=== PATIENT | female | born 1975 | race Caucasian/White ===

== ENCOUNTER 2016-05-13 01:42 | Emergency (ER) | payer SELFPAY ==
[2016-05-13] MEDS ORDERED: NITROGLYCERIN 0.4 MG 25 EA TAB SL ONE ×2 (02:00→03:05)
[2016-05-13] MEDS ORDERED: ASPIRIN TABLET 325 MG TAB ONE (02:00)
[2016-05-13] MEDS ORDERED: ASPIRIN TABLET 325 MG TAB PO ONE (02:00)
--- NOTE | 2016-05-13 02:00 | ED.PDOC ---
History of Present Illness - General Chief Complaint: Cardiovascular Problem Stated Complaint: chest discomfort/not feeling well Time Seen by Provider: 05/13/16 01:46 Source: patient Exam Limitations: no limitations - History of Present Illness Initial Comments: Ms. Janene Rivas 41 y/o female with no chronic medical problems stated that she had not been feeling well for the last one and half weeks with nausea,chest discomfort ,dizziness,sob which got worse tonight stating some discomfort went down to right upper extremity with nausea getting more frequent. Timing/Duration: other - 1 1/2 weeks Severity: moderate Location: central Activities at Onset: none Prior Chest Pain/Cardiac Workup: no prior chest pain Improving Factors: nothing Worsening Factors: nothing Nitro Today/Relief: no nitro taken today, provided by ED Aspirin Treatment Today: no aspirin today, provided by ED Associated Symptoms: nausea/vomiting, shortness of breath Allergies/Adverse Reactions: Allergies NO KNOWN ALLERGY Allergy (Verified 05/13/16 02:04) Review of Systems - Review of Systems Constitutional: States: no symptoms reported EENTM: States: no symptoms reported Respiratory: States: see HPI, short of breath Cardiology: States: see HPI Gastrointestinal/Abdominal: States: no symptoms reported Genitourinary: States: no symptoms reported Musculoskeletal: States: no symptoms reported Skin: States: no symptoms reported Neurological: States: anxiety, emotional problems - stated had been under lots of stress but dont want to elaborate Endocrine: States: no symptoms reported Hematologic/Lymphatic: States: no symptoms reported Past Medical History (General) - Patient Medical History Hx Seizures: No Hx Stroke: No Hx Dementia: No Hx Asthma: No Hx of COPD: No 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 Hx Congestive Heart Failure: No Hx Pacemaker: No Hx Hypertension: No Hx Thyroid Disease: No Hx Diabetes: No Hx Gastroesophageal Reflux: No Hx Renal Disease: No Hx Cancer: Yes - basal cell skin ca forehead Hx of HIV: No Hx Hepatitis C: No Hx MRSA: Yes - Ear Wound 2014 MRSA Source:: Wound Surgical History: other - hysterectomy,excision skin cancer - Vaccination History Hx Tetanus, Diphtheria Vaccination: Yes - within last five years Hx Influenza Vaccination: Yes Hx Pneumococcal Vaccination: No - Social History Hx Tobacco Use: Yes - Daily Hx Alcohol Use: No Hx Substance Use: No Hx Substance Use Treatment: No Hx Depression: No - Activities of Daily Living Patient Lives Alone: No - daughter came back to live in [place] - Female History Patient : No Family Medical History - Family History Mother Living Status: Cause of : emphasema Hx Family Hypertension: Yes - relatives Hx Cardiac Disease: Yes Hx Family Diabetes: Yes - aunt,grandfather Physical Exam - Physical Exam General Appearance: Alert, Anxious, No apparent distress Eyes, Ears, Nose, Throat Exam: PERRL/EOMI, normal ENT inspection, TMs normal, pharynx normal Neck: non-tender, full range of motion, supple, normal inspection Respiratory: chest non-tender, lungs clear, normal breath sounds, no respiratory distress, no accessory muscle use Cardiovascular/Chest: normal peripheral pulses, regular rate, rhythm, no edema, no gallop, no JVD, no murmur Peripheral Pulses: radial,right: 2+, radial,left: 2+ Gastrointestinal/Abdominal: normal bowel sounds, non tender, soft, no organomegaly Extremity: normal range of motion, non-tender, normal inspection, no pedal edema , no calf tenderness Neurologic: no motor/sensory deficits, alert, normal mood/affect, oriented x 3 Progress - Results/Orders Results/Orders: 05/13/16 02:00 CBC (AUTOMATED) W/AUTO DIFF Stat 05/13/16 02:02 IV Care:Saline Lock per Protoc QSHIFT 05/13/16 02:30 EKG STAT 05/13/16 03:34 TROPONIN-I Stat Laboratory Results WBC 9.4 K/mm3 (4.8-10.8) 05/13/16 02:00 RBC 4.97 M/mm3 (4.20-5.40) 05/13/16 02:00 Hgb 15.2 gm/dL (12.0-16.0) 05/13/16 02:00 Hct 44.7 % (36.0-47.0) 05/13/16 02:00 MCV 90.1 fl (81.0-99.0) 05/13/16 02:00 MCH 30.5 pg (27.0-31.0) 05/13/16 02:00 MCHC 33.9 g/dL (33.0-37.0) 05/13/16 02:00 RDW 14.7 % (11.5-14.5) H 05/13/16 02:00 Plt Count 301 K/mm3 (130-400) 05/13/16 02:00 MPV 8.2 fl (7.40-10.4) 05/13/16 02:00 Absolute Neuts (auto) 6.00 K/uL (1.8-6.8) 05/13/16 02:00 Absolute Lymphs (auto) 2.20 K/uL (1.0-3.4) 05/13/16 02:00 Absolute Monos (auto) 0.80 K/uL (0.2-0.8) 05/13/16 02:00 Absolute Eos (auto) 0.10 K/uL (0.0-0.4) 05/13/16 02:00 Absolute Basos (auto) 0.10 K/uL (0.0-0.1) 05/13/16 02:00 Neutrophils % 64.5 % (42.0-78.0) 05/13/16 02:00 Lymphocytes % 24.0 % (20.0-50.0) 05/13/16 02:00 Monocytes % 8.7 % (2.0-9.0) 05/13/16 02:00 Eosinophils % 1.5 % (1.0-5.0) 05/13/16 02:00 Basophils % 1.3 % (0.0-2.0) 05/13/16 02:00 PT 10.9 SECONDS (9.4-12.5) 05/13/16 02:00 INR 0.960 05/13/16 02:00 PTT (SP) 29.6 SECONDS (25.1-36.5) 05/13/16 02:00 D-Dimer, Quantitative 258 ng/mL (0-230) H* 05/13/16 02:00 Sodium 138 mmol/L (135-145) 05/13/16 02:00 Potassium 3.4 mmol/L (3.6-5.0) L 05/13/16 02:00 Chloride 104 mmol/L (101-111) 05/13/16 02:00 Carbon Dioxide 25 mmol/L (21-31) 05/13/16 02:00 Anion Gap 12.4 (12-18) 05/13/16 02:00 BUN 11 mg/dL (7-18) 05/13/16 02:00 Creatinine 0.90 mg/dL (0.6-1.3) 05/13/16 02:00 BUN/Creatinine Ratio 12.2 (10-20) 05/13/16 02:00 Random Glucose 135 mg/dL (70-105) H 05/13/16 02:00 Serum Osmolality 277.1 mOsm/L (275-295) 05/13/16 02:00 Calcium 9.3 mg/dL (8.4-10.2) 05/13/16 02:00 Magnesium 2.1 mg/dL (1.8-2.5) 05/13/16 02:00 Total Bilirubin 0.4 mg/dL (0.2-1.0) 05/13/16 02:00 AST 20 IU/L (10-42) 05/13/16 02:00 ALT 19 IU/L (10-60) 05/13/16 02:00 Alkaline Phosphatase 107 IU/L (42-121) 05/13/16 02:00 Creatine Kinase 143 IU/L (26-140) H 05/13/16 02:00 CK-MB (CK-2) 1.6 ng/mL (0.0-4.4) 05/13/16 02:00 CK-MB (CK-2) % Not Reportable 05/13/16 02:00 Troponin I < 0.02 ng/mL (0.01-0.05) 05/13/16 02:00 B-Natriuretic Peptide 6.8 pg/ml (0-100) 05/13/16 02:00 Serum Total Protein 8.5 gm/dL (6.4-8.2) H 05/13/16 02:00 Albumin 4.8 g/dl (3.2-5.5) 05/13/16 02:00 Globulin 3.7 gm/dL (2.3-3.5) H 05/13/16 02:00 Albumin/Globulin Ratio 1.3 (1.1-1.9) 05/13/16 02:00 Urine Color Yellow (Yellow) 05/13/16 02:49 Urine Appearance Clear (Clear) 05/13/16 02:49 Urine pH 5.5 (4.5-7.8) 05/13/16 02:49 Ur Specific [place] 1.015 (1.005-1.030) 05/13/16 02:49 Urine Protein Negative mg/dL 05/13/16 02:49 Urine Glucose (UA) Negative mg/dL (Negative) 05/13/16 02:49 Urine Ketones Negative mg/dL (NEGATIVE) 05/13/16 02:49 Urine Blood Negative (Negative) 05/13/16 02:49 Urine Nitrite Negative 05/13/16 02:49 Urine Bilirubin Negative (NEGATIVE) 05/13/16 02:49 Urine Urobilinogen 0.2 mg/dL (0.2-1.0) 05/13/16 02:49 Ur Leukocyte Esterase Negative (Negative) 05/13/16 02:49 Urine RBC 0 /hpf 05/13/16 02:49 Urine WBC 1-3 /hpf 05/13/16 02:49 Ur Epithelial Cells 3-5 /hpf 05/13/16 02:49 Urine Bacteria 0 05/13/16 02:49 Urine Mucus Trace 05/13/16 02:49 Urine Opiates Screen Negative ng/mL (2000) 05/13/16 02:00 Urine Barbiturates Negative ng/mL (200) 05/13/16 02:00 Ur Phencyclidine Scrn Negative ng/mL (25) 05/13/16 02:00 U Amphetamin/Meth Scrn Negative ng/mL (1000) 05/13/16 02:00 U Benzodiazepines Scrn Negative ng/mL (200) 05/13/16 02:00 U Cocaine Metab Screen Negative ng/mL (300) 05/13/16 02:00 U Cannabinoids Screen Negative ng/mL (50) 05/13/16 02:00 Laboratory Tests 05/13/16 05/13/16 05/13/16 02:00 02:49 03:50 WBC 9.4 RBC 4.97 Hgb 15.2 Hct 44.7 MCV 90.1 MCH 30.5 MCHC 33.9 RDW 14.7 H Plt Count 301 MPV 8.2 Absolute Neuts (auto) 6.00 Absolute Lymphs (auto) 2.20 Absolute Monos (auto) 0.80 Absolute Eos (auto) 0.10 Absolute Basos (auto) 0.10 Neutrophils % 64.5 Lymphocytes % 24.0 Monocytes % 8.7 Eosinophils % 1.5 Basophils % 1.3 PT 10.9 INR 0.960 PTT (SP) 29.6 D-Dimer, Quantitative 258 H* Sodium 138 Potassium 3.4 L Chloride 104 Carbon Dioxide 25 Anion Gap 12.4 BUN 11 Creatinine 0.90 BUN/Creatinine Ratio 12.2 Random Glucose 135 H Serum Osmolality 277.1 Calcium 9.3 Magnesium 2.1 Total Bilirubin 0.4 AST 20 ALT 19 Alkaline Phosphatase 107 Creatine Kinase 143 H CK-MB (CK-2) 1.6 CK-MB (CK-2) % Not Reportable Troponin I < 0.02 < 0.02 B-Natriuretic Peptide 6.8 Serum Total Protein 8.5 H Albumin 4.8 Globulin 3.7 H Albumin/Globulin Ratio 1.3 Urine Color Yellow Urine Appearance Clear Urine pH 5.5 Ur Specific [place] 1.015 Urine Protein Negative Urine Glucose (UA) Negative Urine Ketones Negative Urine Blood Negative Urine Nitrite Negative Urine Bilirubin Negative Urine Urobilinogen 0.2 Ur Leukocyte Esterase Negative Urine RBC 0 Urine WBC 1-3 Ur Epithelial Cells 3-5 Urine Bacteria 0 Urine Mucus Trace Urine Opiates Screen Negative Urine Barbiturates Negative Ur Phencyclidine Scrn Negative U Amphetamin/Meth Scrn Negative U Benzodiazepines Scrn Negative U Cocaine Metab Screen Negative U Cannabinoids Screen Negative - EKG/XRAY/CT EKG: Sinus, no ST T wave changes Comments: heart rate -81 no acute changes XRAY: chest - no acute cardiopulmonary disease - Additional EKG/XRAY/Consults EKG #2: Sinus, no ST T wave changes Comments: NSR Departure - Departure Clinical Impression: Chest pain Qualifiers: Chest pain type: unspecified Qualifier Code: (R07.9) Chest pain, unspecified Time of Disposition: 05:01 Disposition: Discharge to Home or Self Care Condition: Good Instructions: DI for Atypical Chest Pain, DI for Chest Pain, Smoking Cessation for Older Adults: It's Not Too Late!, Reasons to Quit Smoking, Smoking and Smoking Cessation in Relation to Mortality in Women Diet: low fat, low cholesterol Additional Instructions: NEED TO SIGN UP WITH PRIMARY MD ERIC;RETURN TO EMERGENCY ROOM NEEDED;NEED TO QUIT SMOKING
--- NOTE | 2016-05-13 02:29 | RAD ---
EXAM: Chest,1 View CLINICAL INDICATION: 41-year-old female with pain. TECHNIQUE: Single view, AP portable chest was obtained. COMPARISON: None. FINDINGS: Unremarkable cardiac and mediastinal silhouette. Heart size is normal. Lungs are clear without focal opacity, pneumothorax or pleural effusions. The visualized bones are within normal limits. IMPRESSION: No acute cardiopulmonary abnormalities. Electronically signed by: Rachael Tejeda MD 05/13/2016 2:28 AM CDT
[2016-05-13] MEDS ORDERED: ONDANSETRON ODT 8 MG TAB SL ONE (03:59)
[2016-05-13] MEDS ORDERED: ONDANSETRON ODT 8 MG TAB ONE (04:00)
[2016-05-13] MEDS ORDERED: amLODIPine BESYLATE 5 MG TAB PO ONE (04:03)
[2016-05-13 04:08] VITALS: O2SAT 97
[2016-05-13] MEDS ORDERED: LORazepam 1 MG TAB PO ONE (05:10)
[2016-05-13 05:28] VITALS: BP 149/83; TEMP 97
== END 2016-05-13 05:32 | disposition home or self-care (01) ==
LOC: ER 01:42
DX: R07.9 Chest pain, unspecified (principal); R42 Dizziness and giddiness; R11.0 Nausea; I42.9 Cardiomyopathy, unspecified; F17.200 Nicotine dependence, unspecified, uncomplicated; Z85.828 Personal history of other malignant neoplasm of skin; Z86.14 Personal history of Methicillin resistant Staphylococcus aureus infection; Z82.49 Family history of ischemic heart disease and other diseases of the circulatory system

== ENCOUNTER 2016-12-29 21:32 | Emergency (ER) | payer SELFPAY ==
--- NOTE | 2016-12-29 21:51 | ED.PDOC ---
History of Present Illness - General Chief Complaint: ENT Problem Stated Complaint: dental pain Time Seen by Provider: 12/29/16 21:46 Source: patient Exam Limitations: no limitations - History of Present Illness Initial Comments: Janene Rivas 41 y/o female seen today because of achy tooth left jaw for 5 days; painful to chew Timing/Duration: other - see hpi EENT Location: mouth Prearrival Treatment: no prearrival treatment Presenting Symptoms: toothache Improving Factors: nothing Worsening Factors: eating Associated Symptoms: denies symptoms Allergies/Adverse Reactions: Allergies NO KNOWN ALLERGY Allergy (Verified 05/13/16 02:04) Home Medications: Ambulatory Orders Clindamycin HCl 300 mg PO BID #30 cap 12/29/16 Review of Systems - Review of Systems All other Systems: Reviewed and Negative, No Change from Baseline Past Medical History (General) - Patient Medical History Hx Seizures: No Hx Stroke: No Hx Dementia: No Hx Asthma: No Hx of COPD: No 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 Hx Congestive Heart Failure: No Hx Pacemaker: No Hx Hypertension: No Hx Thyroid Disease: No Hx Diabetes: No Hx Gastroesophageal Reflux: No Hx Renal Disease: No Hx Cancer: Yes - basal cell skin ca forehead Hx of HIV: No Hx Hepatitis C: No Hx MRSA: Yes - Ear Wound 2014 MRSA Source:: Wound Surgical History: cancer surgery - ;hysterectomy, cholecystectomy, other - hysterectomy - Vaccination History Hx Tetanus, Diphtheria Vaccination: Yes - within last five years Hx Influenza Vaccination: Yes Hx Pneumococcal Vaccination: No - Social History Hx Tobacco Use: Yes - Daily Hx Alcohol Use: No Hx Substance Use: No Hx Substance Use Treatment: No Hx Depression: No - Female History Patient : No Family Medical History - Family History Mother Living Status: Cause of : emphasema Hx Family Hypertension: Yes - relatives Hx Cardiac Disease: Yes Hx Family Diabetes: Yes - aunt,grandfather Physical Exam - Physical Exam General Appearance: Agitated, No apparent distress Eye Exam: bilateral normal Ear Exam: bilateral ear: auricle normal Nasal Exam: normal inspection Throat Exam: normal mouth inspection, pharynx normal, dental tenderness - left jaw with decayed tooth left lower molar Neck: non-tender, supple, normal inspection, trachea midline Cardiovascular/Respiratory: regular rate, rhythm, no M/R/G, normal peripheral pulses, normal breath sounds Abdominal Exam: non-tender, no organomegaly Neurologic: alert, oriented x 3 Skin Exam: normal color, warm/dry Departure - Departure Clinical Impression: Dental caries into pulp, Pain due to dental caries Time of Disposition: 21:57 Disposition: Discharge to Home or Self Care Condition: Fair Departure Forms: ED Discharge - Pt. Copy, Patient Portal Self Enrollment Instructions: DI for Tooth Decay Prescriptions: Clindamycin HCl 300 mg PO BID #30 cap Home Medications: Ambulatory Orders Clindamycin HCl 300 mg PO BID #30 cap 12/29/16 Additional Instructions: SOFT DIET ONLY UNTIL SEEN BY DENTIST;NEED TO MAKE APPOINTMENT WITH DENTIST ERIC May take Aleve (OTC) 1-2 tablets 3x a day for pain as needed
[2016-12-29] MEDS ORDERED: HYDROcodone 10MG/APAP 325MG 1 EA TAB PO ONE (21:55)
[2016-12-29] MEDS ORDERED: CLINDAMYCIN HCL CAP 150 MG CAP PO ONE (21:55)
[2016-12-29] MEDS ORDERED: HYDROCOD/APAP 10/325 (ER DISP) # 3 tablets PO ONE (21:55)
[2016-12-29 22:30] VITALS: BP 146/93; TEMP 99.7; O2SAT 99
== END 2016-12-29 22:25 | disposition home or self-care (01) ==
LOC: ER 21:32
DX: K02.9 Dental caries, unspecified (principal); F17.200 Nicotine dependence, unspecified, uncomplicated; Z85.828 Personal history of other malignant neoplasm of skin

== ENCOUNTER 2017-05-26 00:56 | Emergency (ER) | payer SELFPAY ==
[2017-05-26 01:15] VITALS: BP 130/85; TEMP 99; O2SAT 98
--- NOTE | 2017-05-26 01:27 | ED.PDOC ---
History of Present Illness - General Chief Complaint: Skin/Abrasion/Tear Stated Complaint: abscess on head Time Seen by Provider: 05/26/17 01:24 Source: patient Exam Limitations: no limitations - History of Present Illness Initial Comments: the patient is a 42-year-old female presenting to the emergency room secondary to a small abscess to her right sikh forming several days ago. She is already unroofed it and it has already started draining. It is giving her some pain. Additionally she is having some significant anxiety and some insomnia due to social stressors in that her daughter just about 5 days ago. No fever. No altered mental status. Risks and benefits of exam were explained and patient agreed to proceed. Alcohol swabs were used to clean the area and 18 -gauge needle was used to widen the opening of the small abscess drainage site. Minimal amount ofadditional fluid was obtained. Timing/Duration: unsure Severity: moderate Improving Factors: nothing Worsening Factors: nothing Associated Symptoms: denies symptoms Allergies/Adverse Reactions: Allergies NO KNOWN ALLERGY Allergy (Verified 05/13/16 02:04) Home Medications: Ambulatory Orders Clindamycin HCl 300 mg PO BID #30 cap 12/29/16 Sulfa/Trimeth 800/160 (Ds) Tab [Bactrim DS Tab] 1 ea PO BID #20 tab 05/26/17 Review of Systems - Review of Systems Constitutional: States: no symptoms reported EENTM: States: no symptoms reported Respiratory: States: no symptoms reported Cardiology: States: no symptoms reported Gastrointestinal/Abdominal: States: no symptoms reported Genitourinary: States: no symptoms reported Musculoskeletal: States: no symptoms reported Skin: States: see HPI Neurological: States: no symptoms reported Endocrine: States: no symptoms reported All other Systems: No Change from Baseline Past Medical History (General) - Patient Medical History Hx Seizures: No Hx Stroke: No Hx Dementia: No Hx Asthma: No Hx of COPD: No Hx Cardiac Disorders: No Hx Congestive Heart Failure: No Hx Pacemaker: No Hx Hypertension: No Hx Thyroid Disease: No Hx Diabetes: No Hx Gastroesophageal Reflux: No Hx Renal Disease: No Hx Cancer: Yes - Skin CA Hx of HIV: No Hx Hepatitis C: No Hx MRSA: No MRSA Source:: Wound Surgical History: cholecystectomy, other - Vaccination History Hx Tetanus, Diphtheria Vaccination: Yes Hx Influenza Vaccination: Yes Hx Pneumococcal Vaccination: No Immunizations Up to Date: Yes - Social History Hx Tobacco Use: Yes Hx Chewing Tobacco Use: No Hx Alcohol Use: No Hx Substance Use: No Hx Substance Use Treatment: No Hx Depression: No Feels Threatened In Home Enviroment: No Feels Threatened In a Relationship: No Hx Physical Abuse: No Hx Emotional Abuse: No Hx Suspected Abuse: No - Activities of Daily Living Hospice Agency (if applicable):: None - Female History Patient is a Female of Child Bearing Age (10 -59 yrs old): No Patient : No Family Medical History - Family History Mother Living Status: Cause of : emphasema Hx Family Asthma: No Hx Family Congestive Heart Failure: No Hx Family Hypertension: Yes - relatives Hx Family Stroke: No Hx Cardiac Disease: Yes Hx Family Diabetes: Yes - aunt,grandfather Hx Family Cancer: No Physical Exam - Physical Exam General Appearance: Alert, Anxious, No apparent distress Eye Exam: bilateral normal Ears, Nose, Throat: hearing grossly normal Neck: non-tender, supple Respiratory: no respiratory distress, no accessory muscle use Cardiovascular/Chest: normal peripheral pulses, no edema Peripheral Pulses: radial,right: 2+, radial,left: 2+ Rectal Exam: deferred Extremity: non-tender, normal inspection, normal capillary refill Neurologic: dental manager II-XII nml as tested, alert, oriented x 3, other - the patient is very anxious. Skin Exam: other - very mild amount of cellulitis surrounding small abscess to the rightt sikh. Abscess site is already draining upon initial exam. I'm unable to express a significant additional amount of fluid from the site. Due to this and the fact that it is already opened, no cultures are obtained. Comments: Vital Signs - 24 hr 05/26/17 01:02 Temperature 99.0 F Pulse Rate [ 114 H Right Brachial] Respiratory 18 Rate Blood Pressure 130/85 [Left Arm] O2 Sat by Pulse 98 Oximetry Progress - Progress Progress: 05/26/17 01:28 the patient's a 42-year-old female presenting with a small abscess to the right sikh that is already draining. The patient was given 2 tablets of Bactrim here tonight. She'll be placed on Bactrim twice daily for the next 10 days and she needs to take this medication with food. Additionally given recent social stressors the patient was given 1 dose of Valium here tonight and one dose of hydrocodone for the pain. Ibuprofen can be used for pain otherwise after tonight. She needs to keep herself well-hydrated. She needs to follow-up with her primary care doctor early next week for longer term care. Departure - Departure Clinical Impression: Abscess, Anxiety Disposition: Discharge to Home or Self Care Condition: Fair Departure Forms: ED Discharge - Pt. Copy, Patient Portal Self Enrollment Instructions: DI for Wound Infection Diet: regular diet Activity: increase activity as tolerated Prescriptions: Sulfa/Trimeth 800/160 (Ds) Tab [Bactrim DS Tab] 1 ea PO BID #20 tab Home Medications: Ambulatory Orders Clindamycin HCl 300 mg PO BID #30 cap 12/29/16 Sulfa/Trimeth 800/160 (Ds) Tab [Bactrim DS Tab] 1 ea PO BID #20 tab 05/26/17 Additional Instructions: the patient's a 42-year-old female presenting with a small abscess to the right sikh that is already draining. The patient was given 2 tablets of Bactrim here tonight. She'll be placed on Bactrim twice daily for the next 10 days and she needs to take this medication with food. Additionally given recent social stressors the patient was given 1 dose of Valium here tonight and one dose of hydrocodone for the pain. Ibuprofen can be used for pain otherwise after tonight. She needs to keep herself well-hydrated. She needs to follow-up with her primary care doctor early next week for longer term care.
[2017-05-26] MEDS: SULFA/TRIMETH 800/160 (DS) TAB 1 EA TAB PO ONE (01:35)
[2017-05-26] MEDS: diazePAM 2 MG TAB PO ONE (01:35)
[2017-05-26] MEDS: HYDROcodone 5MG/APAP 325MG 1 EA TAB PO ONE (01:35)
== END 2017-05-26 01:45 | disposition home or self-care (01) ==
LOC: ER 00:56
DX: L02.01 Cutaneous abscess of face (principal); F41.9 Anxiety disorder, unspecified; Z85.828 Personal history of other malignant neoplasm of skin; Z87.891 Personal history of nicotine dependence

== ENCOUNTER 2017-12-03 19:33 | Emergency (ER) | payer SELFPAY ==
[2017-12-03 19:49] VITALS: BP 161/91; TEMP 99.3; O2SAT 100
[2017-12-03] MEDS ORDERED: CEPHALEXIN MONOHYDRATE 500 MG CAP PO ONE (19:53)
[2017-12-03] MEDS ORDERED: traMADol HCL 50 MG TAB PO ONE (19:53)
--- NOTE | 2017-12-03 19:56 | ED.PDOC ---
History of Present Illness - General Chief Complaint: Dental/Mouth Stated Complaint: toothache Time Seen by Provider: 12/03/17 19:47 Source: patient Exam Limitations: no limitations - History of Present Illness Initial Comments: the patient is a 42-year-old female presenting to the emergency room secondary to left-sided maxillary sinus pressure from a infected dental root from the second molar on the left maxilla. Symptoms have been present for 1-2 weeks. No definite fever. No obvious swelling. She has been feeling general malaise. Timing/Duration: 1 week, constant, getting worse Severity: moderate Improving Factors: nothing Worsening Factors: eating Associated Symptoms: denies symptoms Allergies/Adverse Reactions: Allergies Tramadol Adverse Reaction (Verified 12/03/17 19:49) Home Medications: Ambulatory Orders Cephalexin Monohydrate [Keflex] 500 mg PO Q8H #30 cap 12/03/17 Tramadol HCl 50 mg PO Q8HR PRN #20 tab 12/03/17 Review of Systems - Review of Systems Constitutional: States: malaise EENTM: States: see HPI Respiratory: States: no symptoms reported Cardiology: States: no symptoms reported Gastrointestinal/Abdominal: States: no symptoms reported Genitourinary: States: no symptoms reported Musculoskeletal: States: no symptoms reported Skin: States: no symptoms reported Neurological: States: no symptoms reported Endocrine: States: no symptoms reported All other Systems: No Change from Baseline Past Medical History (General) - Patient Medical History Hx Seizures: No Hx Stroke: No Hx Dementia: No Hx Asthma: No Hx of COPD: No Hx Cardiac Disorders: No Hx Congestive Heart Failure: No Hx Pacemaker: No Hx Hypertension: Yes Hx Thyroid Disease: No Hx Diabetes: No Hx Gastroesophageal Reflux: No Hx Renal Disease: No Hx Cancer: Yes - Skin CA Hx of HIV: No Hx Hepatitis C: No Hx MRSA: No MRSA Source:: Wound Surgical History: cholecystectomy, Hysterectomy - Vaccination History Hx Tetanus, Diphtheria Vaccination: Yes Hx Influenza Vaccination: Yes Hx Pneumococcal Vaccination: No - Social History Hx Tobacco Use: Yes Hx Chewing Tobacco Use: No Hx Alcohol Use: No Hx Substance Use: No Hx Substance Use Treatment: No Hx Depression: No Hx Physical Abuse: No Hx Emotional Abuse: No Hx Suspected Abuse: No - Female History Patient is a Female of Child Bearing Age (10 -59 yrs old): No Patient : No - hysterectomy Family Medical History - Family History Mother Living Status: Cause of : emphasema Hx Family Asthma: No Hx Family Congestive Heart Failure: No Hx Family Hypertension: Yes - relatives Hx Family Stroke: No Hx Cardiac Disease: Yes Hx Family Diabetes: Yes - aunt,grandfather Hx Family Cancer: No Physical Exam - Physical Exam General Appearance: Alert, Comfortable, No apparent distress Eye Exam: bilateral normal Ears, Nose, Throat: hearing grossly normal, other - very poor dentition with multiple cavities Neck: full range of motion, supple Respiratory: no respiratory distress, no accessory muscle use Cardiovascular/Chest: normal peripheral pulses, no edema Peripheral Pulses: radial,right: 2+, radial,left: 2+ Rectal Exam: deferred Extremity: non-tender, no pedal edema, normal capillary refill 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 The patient was placed on Keflex for 10 days. She can use Aleve twice daily as needed to help reduce inflammation. She needs to get set up with a dentist. She needs to follow-up with her primary care doctor for her chronic hypertension. ER warnings were given. Tramadol was written additionally for as needed use. Departure - Departure Clinical Impression: Infected dental caries Disposition: Discharge to Home or Self Care Condition: Fair Departure Forms: ED Discharge - Pt. Copy, Patient Portal Self Enrollment Instructions: DI for Dental Pain Diet: regular diet Activity: increase activity as tolerated Prescriptions: Tramadol HCl 50 mg PO Q8HR PRN #20 tab PRN Reason: Toothache Pain Cephalexin Monohydrate [Keflex] 500 mg PO Q8H #30 cap Home Medications: Ambulatory Orders Cephalexin Monohydrate [Keflex] 500 mg PO Q8H #30 cap 12/03/17 Tramadol HCl 50 mg PO Q8HR PRN #20 tab 12/03/17 Additional Instructions: the patient's a 42-year-old female presenting with infected dental caries with infection extending into the left maxillary sinus. The patient was placed on Keflex for 10 days. She can use Aleve twice daily as needed to help reduce inflammation. She needs to get set up with a dentist. She needs to follow-up with her primary care doctor for her chronic hypertension. ER warnings were given. Tramadol was written additionally for as needed use.
== END 2017-12-03 20:04 | disposition home or self-care (01) ==
LOC: ER 19:33
DX: K04.7 Periapical abscess without sinus (principal); K02.9 Dental caries, unspecified; I10 Essential (primary) hypertension; Z87.891 Personal history of nicotine dependence; Z85.828 Personal history of other malignant neoplasm of skin; Z88.8 Allergy status to other drugs, medicaments and biological substances

== ENCOUNTER 2018-09-11 12:50 | Emergency (ER) | payer MEDICAID, SELFPAY ==
--- NOTE | 2018-09-11 13:31 | ED.PDOC ---
History of Present Illness - General Chief Complaint: Back Pain or Injury Stated Complaint: left sided back,shoulder and neck pain,weakness Time Seen by Provider: 09/11/18 13:06 Source: patient Exam Limitations: no limitations - History of Present Illness Initial Comments: patient comes in with 2-3 day history of right-sided shoulder pain and back pain. Patient states it was just worsening and now both of her arms feel really weak and she overall just feels horrible. Patient denies any overt chest pain with the exception of the pain right at her right shoulder. She's had no shortness of breath but is a smoker and has smoked for the past 20 years. She has no diaphoresis and no fever but overall malaise. She denies any dysuria, sore throat, nasal congestion, or diarrhea. She has had a history of basal cell carcinoma that was extensive to the left side of her face. She's had multiple surgeries including hysterectomy, cholecystectomy, and hernia repair. Patient d oes have a past history of hypertension. She's had no recent injury or increased activity or trauma. The pain feels like a tightnessor a fullness up in her upper back and right shoulder. Timing/Duration: days - 2 Quality/Severity: moderate Back Pain Location: T-spine Method of Injury/Prior Injury: unknown Improving Factors: nothing Worsening Factors: nothing Allergies/Adverse Reactions: Allergies Tramadol Adverse Reaction (Verified 12/03/17 19:49) Home Medications: Ambulatory Orders Citalopram Hydrobromide [Citalopram] 40 mg PO DAILY 09/11/18 Cyclobenzaprine HCl [Flexeril] 10 mg PO TID PRN #15 tab 09/11/18 Diazepam [Valium] 10 mg PO PRN 09/11/18 Lisinopril 10 mg PO DAILY 09/11/18 Review of Systems - Review of Systems Constitutional: States: malaise, weakness. Denies: chills, fever EENTM: States: no symptoms reported. Denies: eye pain, ear pain, nose gilma estion, throat pain Respiratory: States: no symptoms reported. Denies: cough, short of breath, wheezing Cardiology: States: no symptoms reported. Denies: chest pain, edema, palpitations Gastrointestinal/Abdominal: States: no symptoms reported. Denies: abdominal pain, diarrhea, nausea, vomiting Genitourinary: States: no symptoms reported. Denies: discharge, dysuria Musculoskeletal: States: see HPI Past Medical History (General) - Patient Medical History Hx Seizures: No Hx Stroke: No Hx Dementia: No Hx Asthma: No Hx of COPD: No Hx Cardiac Disorders: No Hx Congestive Heart Failure: No Hx Pacemaker: No Hx Hypertension: Yes Hx Thyroid Disease: No Hx Diabetes: No Hx Gastroesophageal Reflux: No Hx Renal Disease: No Hx Cancer: Yes - Skin CA Hx of HIV: No Hx Hepatitis C: No Hx MRSA: No MRSA Source:: Wound Surgical History: Hysterectomy - Vaccination History Hx Tetanus, Diphtheria Vaccination: Yes Hx Influenza Vaccination: Yes Hx Pneumococcal Vaccination: Yes - Social History Hx Tobacco Use: Yes Hx Chewing Tobacco Use: No Hx Alcohol Use: No Hx Substance Use: No Hx Substance Use Treatment: No Hx Depression: No Hx Physical Abuse: No Hx Emotional Abuse: No Hx Suspected Abuse: No - Female History Patient : No - hysterectomy Family Medical History - Family History Mother Living Status: Cause of : emphasema Hx Family Asthma: No Hx Family Congestive Heart Failure: No Hx Family Hypertension: Yes - relatives Hx Family Stroke: No Hx Cardiac Disease: Yes Hx Family Diabetes: Yes - aunt,grandfather Hx Family Cancer: No Physical Exam - Physical Exam General Appearance: Alert, Comfortable, No apparent distress Eyes, Ears, Nose, Throat Exam: PERRL/EOMI, normal ENT inspection, TMs normal, pharynx normal, other - scar tissue over the left eye including removal of partial tissue Neck Exam: non-tender, full range of motion, normal alignment, normal inspection Cardiovascular/Respiratory: regular rate, rhythm, no M/R/G, normal peripheral pu lses, no JVD, normal breath sounds, no respiratory distress Peripheral Pulses: radial,right: 2+, radial,left: 2+ Gastrointestinal/Abdominal: normal bowel sounds, non tender, soft Back Exam: normal inspection, no CVA tenderness, other - muscle spasm on the right trapezius with no point tenderness or trigger point no gross deformities or bruising floor range of motion of the right shoulder Neurologic: no motor/sensory deficits, alert, oriented x 3 Progress - Progress Progress: 09/11/18 14:26 all labs and EKG reassuring. Appears to be muscular in nature. Heat to area, gentle massage, and muscle relaxers. - Results/Orders Results/Orders: Patient Name: ALISE RUST Gender: Female Date of : 1975 Referring Physician: JOHNNY WISE Organization: [facility] Accession Number: [id number] Requested Date: September 11, 2018 13:28 Report Status: Final Requested Procedure: 1 Procedure Description: Chest,1 View Modality: CR Findings Reporting MD: Nomi Fofana Fellow MD: Not available Dictation Time: Fabrication And Layout Craftsman: Not available Small Craft Operator Date: Study: Single Frontal Radiograph of the Chest. Indication:pain Comparison: May 13, 2016 Impression: Heart size normal. Lungs clear. No acute osseous abnormality 09/11/18 13:30 EKG STAT Laboratory Results WBC 9.7 K/mm3 (4.8-10.8) 09/11/18 13:35 RBC 4.97 M/mm3 (4.20-5.40) 09/11/18 13:35 Hgb 15.5 gm/dL (12.0-16.0) 09/11/18 13:35 Hct 44.7 % (36.0-47.0) 09/11/18 13:35 MCV 89.8 fl (81.0-99.0) 09/11/18 13:35 MCH 31.2 pg (27.0-31.0) H 09/11/18 13:35 MCHC 34.8 g/dL (33.0-37.0) 09/11/18 13:35 RDW 14.5 % (11.5-14.5) 09/11/18 13:35 Plt Count 360 K/mm3 (130-400) 09/11/18 13:35 MPV 7.9 fl (7.40-10.4) 09/11/18 13:35 Absolute Neuts (auto) 5.40 K/uL (1.8-6.8) 09/11/18 13:35 Absolute Lymphs (auto) 3.50 K/uL (1.0-3.4) H 09/11/18 13:35 Absolute Monos (auto) 0.60 K/uL (0.2-0.8) 09/11/18 13:35 Absolute Eos (auto) 0.10 K/uL (0.0-0.4) 09/11/18 13:35 Absolute Basos (auto) 0.10 K/uL (0.0-0.1) 09/11/18 13:35 Neutrophils % 55.6 % (42.0-78.0) 09/11/18 13:35 Lymphocytes % 35.5 % (20.0-50.0) 09/11/18 13:35 Monocytes % 6.3 % (2.0-9.0) 09/11/18 13:35 Eosinophils % 1.4 % (1.0-5.0) 09/11/18 13:35 Basophils % 1.2 % (0.0-2.0) 09/11/18 13:35 Sodium 134 mmol/L (135-145) L 09/11/18 13:35 Potassium 3.5 mmol/L (3.6-5.0) L 09/11/18 13:35 Chloride 105 mmol/L (101-111) 09/11/18 13:35 Carbon Dioxide 19 mmol/L (21-31) L 09/11/18 13:35 Anion Gap 13.5 (12-18) 09/11/18 13:35 BUN 14 mg/dL (7-18) 09/11/18 13:35 Creatinine 1.11 mg/dL (0.6-1.3) 09/11/18 13:35 BUN/Creatinine Ratio 12.6 (10-20) 09/11/18 13:35 Random Glucose 119 mg/dL (70-105) H 09/11/18 13:35 Serum Osmolality 269.9 mOsm/L (275-295) L 09/11/18 13:35 Calcium 8.9 mg/dL (8.4-10.2) 09/11/18 13:35 Total Bilirubin 0.4 mg/dL (0.2-1.0) 09/11/18 13:35 AST 17 IU/L (10-42) 09/11/18 13:35 ALT 21 IU/L (10-60) 09/11/18 13:35 Alkaline Phosphatase 89 IU/L (42-121) 09/11/18 13:35 Creatine Kinase 146 IU/L (26-140) H 09/11/18 13:35 CK-MB (CK-2) 0.8 ng/mL (0.0-4.4) 09/11/18 13:35 CK-MB (CK-2) % Not Reportable 09/11/18 13:35 Troponin I < 0.02 ng/mL (0.01-0.05) 09/11/18 13:35 Serum Total Protein 8.1 gm/dL (6.4-8.2) 09/11/18 13:35 Albumin 4.3 g/dl (3.2-5.5) 09/11/18 13:35 Globulin 3.8 gm/dL (2.3-3.5) H 09/11/18 13:35 Albumin/Globulin Ratio 1.1 (1.1-1.9) 09/11/18 13:35 Urine Color Yellow (Yellow) 09/11/18 13:55 Urine Appearance Clear (Clear) 09/11/18 13:55 Urine pH 5.5 (4.5-7.8) 09/11/18 13:55 Ur Specific [place] 1.015 (1.005-1.030) 09/11/18 13:55 Urine Protein Negative mg/dL 09/11/18 13:55 Urine Glucose (UA) Negative mg/dL (Negative) 09/11/18 13:55 Urine Ketones Negative mg/dL (NEGATIVE) 09/11/18 13:55 Urine Blood Negative (Negative) 09/11/18 13:55 Urine Nitrite Negative 09/11/18 13:55 Urine Bilirubin Negative (NEGATIVE) 09/11/18 13:55 Urine Urobilinogen 0.2 mg/dL (0.2-1.0) 09/11/18 13:55 Ur Leukocyte Esterase Negative (Negative) 09/11/18 13:55 Urine RBC 0-1 /hpf 09/11/18 13:55 Urine WBC 0 /hpf 09/11/18 13:55 Ur Epithelial Cells 0 /hpf 09/11/18 13:55 Amorphous Sediment 1+ 09/11/18 13:55 Urine Bacteria 0 09/11/18 13:55 - EKG/XRAY/CT EKG: Sinus, no ST T wave changes Comments: HR 80 and normal axis Departure - Departure Clinical Impression: Muscle spasm Disposition: Discharge to Home or Self Care Condition: Fair Departure Forms: ED Discharge - Pt. Copy, Patient Portal Self Enrollment Instructions: DI for Low Back Pain Prescriptions: Cyclobenzaprine HCl [Flexeril] 10 mg PO TID PRN #15 tab PRN Reason: Muscle Spasms Home Medications: Ambulatory Orders Citalopram Hydrobromide [Citalopram] 40 mg PO DAILY 09/11/18 Cyclobenzaprine HCl [Flexeril] 10 mg PO TID PRN #15 tab 09/11/18 Diazepam [Valium] 10 mg PO PRN 09/11/18 Lisinopril 10 mg PO DAILY 09/11/18 Additional Instructions: Heat to area, gentle massage, and muscle relaxers. Return to ER for severe worsening of pain. OTC tylenol prn pain
--- NOTE | 2018-09-11 13:54 | RAD ---
Study: Single Frontal Radiograph of the Chest. Indication:pain Comparison: May 13, 2016 Impression: Heart size normal. Lungs clear. No acute osseous abnormality. Electronically signed by: Nomi Fofana MD 09/11/2018 1:53 PM CDT
[2018-09-11 14:11] VITALS: TEMP 98.6
[2018-09-11] MEDS ORDERED: ONDANSETRON ODT 8 MG TAB SL ONE (14:15)
[2018-09-11] MEDS ORDERED: CYCLOBENZAPRINE HCL 5 MG TAB PO ONE (14:15)
[2018-09-11 14:57] VITALS: BP 115/83; O2SAT 97
== END 2018-09-11 14:56 | disposition home or self-care (01) ==
LOC: ER 12:50
DX: M62.838 Other muscle spasm (principal); I10 Essential (primary) hypertension; F17.200 Nicotine dependence, unspecified, uncomplicated; Z85.828 Personal history of other malignant neoplasm of skin; Z88.8 Allergy status to other drugs, medicaments and biological substances

== ENCOUNTER → 2018-11-15 | Outpatient (CLI) | payer OTHER ==
--- NOTE | 2018-11-20 14:02 | MAM ---
EXAM DESCRIPTION: 3D Screening BILATERAL : Digital Mammography. CLINICAL HISTORY: 43 years Female ANNUAL SCREENING . Bilateral breast tenderness. No personal history of breast cancer. Mother with breast cancer age 48. Remote family history of breast cancer. Menarche age 12. Childbirth. Postmenopausal. No HRT. Benign breast biopsy. Lifetime risk of developing breast cancer (Tyrer-Cuzick model)(%): 8.8. COMPARISON: Baseline study at this facility.. No prior reports available. TECHNIQUE: Bilateral CC and MLO projection full-field images, digital tomosynthesis mammographic technique Bilateral digital 2-D full-field MLO images. CAD not available for tomosynthesis or 2-D images. FINDINGS: The breast parenchymal density pattern is: Heterogeneously dense breast tissue, which may obscure small masses. Skin markers indicating skin moles posterior right breast.. Well-defined mass density, approximately 1 cm diameter, posterior third abutting the right pectoral muscle at the 9:00 position of the right breast. Not associated with microcalcifications. Possibly a lymph node. No new focal, stellate mass or density, focal asymmetry , and no suspicious microcalcifications left breast IMPRESSION: BI-RADS CATEGORY: 0 - INCOMPLETE- Need additional imaging evaluation. FOLLOW-UP: Recall for additional imaging: Full-field LM 2-D and tomosynthesis images right breast. Exaggerated lateral 2-D and tomosynthesis images CC projection. Targeted right breast ultrasound of the region of interest.. Written communication concerning the IMPRESSION and Follow-up, will be mailed to the patient and referring health care provider. Electronically signed by: Andrew Lewis MD 11/20/2018 2:00 PM CDT
== END ==
LOC: MAMMO 10:00
PROVIDERS: ATTEND Emergency Medicine
DX: Z12.31 Encounter for screening mammogram for malignant neoplasm of breast (principal)

== ENCOUNTER → 2018-12-04 | Outpatient (CLI) | payer OTHER ==
--- NOTE | 2018-12-04 16:59 | MAM ---
EXAM DESCRIPTION: 3D Diagnostic, Bilateral (accession [id number]), Breast,Right (accession [id number]): Ultrasound CLINICAL HISTORY: 43 yearsFemaleABN MAMMO mass density posterior lateral right breast. COMPARISON: Bilateral screening digital breast tomosynthesis 15 November 2018. TECHNIQUE: Bilateral LM projection full-field images, digital mammographic tomosynthesis technique. Bilateral 2-D digital full-field images. MLO, CC, and LM projections. Exaggerated right breast lateral CC image. CAD not available. . Transcutaneous scanning of the right breast utilizing ruiz-scale and Doppler modes. Scanning performed by the pet care attendant and Dr. Lewis. FINDINGS: The breast parenchymal density pattern is: Heterogeneously dense breast tissue, which may obscure small masses. No skin thickening or nipple retraction no mass density is again demonstrated posterior lateral right breast abutting the pectoral muscle. More circumscribed appearance. Most likely a lymph node. No suspicious microcalcifications or new focal asymmetries bilaterally. Ultrasound: Scanning posterior lateral right breast 11:00 to 8:00 position abutting the chest wall. Heterogeneous fatty and fibroglandular tissues. Hypoechoic lymph node versus anechoic cyst 12:00 abutting the chest wall with circumscribed margins, wider than tall orientation and posterior acoustic enhancement. Nonvascular. More laterally anechoic mass at 10:30 measures less than 5 mm with circumscribed margins and most likely a cyst. Anechoic oval-shaped cyst measuring 5.2 x 4.3 mm with circumscribed margins, wider than tall orientation, nonvascular and posterior acoustic enhancement. IMPRESSION: Benign exam. Cysts and lymph nodes in the region of interest right breast. BIRAD CATEGORY: 2 BENIGN FINDINGS. RECOMMENDATIONS: FOLLOW UP: Return to routine digital bilateral mammographic screening, one year interval from November 2018. Written communication explaining the IMPRESSION and follow-up, will be mailed to the patient and referring health care provider. The FINDINGS and the FOLLOW-UP plan were reviewed in person with the patient after the examination. According to the [employer], yearly mammograms are recommended starting at age 40 and continuing as long as a woman is in good health. Any breast change noted on a breast self-exam should be reported promptly to the patient's healthcare provider. Breast MRI is recommended for women with an approximately 20-25% or greater lifetime risk of breast cancer, including women with a strong family history of breast or ovarian cancer and women who have been treated for Hodgkin's disease. A negative mammographic report should not delay tissue diagnosis in patients with significant clinical history or physical findings. Extremely dense breast tissue limits the sensitivity of digital mammography. Electronically signed by: Andrew Lewis MD 12/04/2018 4:57 PM CDT
== END ==
LOC: MAMMO 10:11
PROVIDERS: ATTEND Emergency Medicine
DX: R92.8 Other abnormal and inconclusive findings on diagnostic imaging of breast (principal); N60.01 Solitary cyst of right breast
CPT/HCPCS: 76641; 77066; G0279

== ENCOUNTER 2019-08-07 | Emergency (ER) | payer OTHER ==
--- NOTE | 2019-08-07 06:54 | ED.PDOC ---
History of Present Illness - General Chief Complaint: General Stated Complaint: toothache, body aches Time Seen by Provider: 08/07/19 06:41 Source: patient Exam Limitations: no limitations - History of Present Illness Initial Comments: The patient is a 44-year-old female presented emergency room secondary to what appears to be 2 early infected dental caries, one on the left upper and 1 on the left lower molar. Both teeth are fractured. No large abscess is palpable. This is been patient making the patient feel poorly over the last couple of days. No nausea vomiting or diarrhea. She does have an appointment with a dentist in the near future. It does also appear that the patient has been having some depression issues since the passing of her daughter. No s uicidal plan or ideation. Timing/Duration: other - 2 to 3 days Severity: moderate Improving Factors: nothing Worsening Factors: eating Associated Symptoms: denies symptoms Allergies/Adverse Reactions: Allergies Tramadol Adverse Reaction (Verified 12/03/17 19:49) Home Medications: Ambulatory Orders Citalopram Hydrobromide [Citalopram] 40 mg PO DAILY 09/11/18 Cyclobenzaprine HCl [Flexeril] 10 mg PO TID PRN #15 tab 09/11/18 Diazepam [Valium] 10 mg PO PRN 09/11/18 Lisinopril 10 mg PO DAILY 09/11/18 Acetamin W/Cod #3 Tab [Tylenol w/CODEINE #3] 1 ea PO Q8HRS PRN #15 tab 08/07/19 Clindamycin HCl 300 mg PO Q8HR #21 cap 08/07/19 Review of Systems - Review of Systems Constitutional: States: malaise EENTM: States: no symptoms reported, other - Dental pain Respiratory: States: no symptoms reported Cardiology: States: no symptoms reported Gastrointestinal/Abdominal: States: abdominal pain - Small amount at the site of the previous ventral hernia repair. Genitourinary: States: no symptoms reported Musculoskeletal: States: no symptoms reported Skin: States: no symptoms reported Neurological: States: anxiety, depressed Endocrine: States: no symptoms reported All other Systems: No Change from Baseline Past Medical History (General) - Patient Medical History Hx Seizures: No Hx Stroke: No Hx Dementia: No Hx Asthma: No Hx of COPD: No Hx Cardiac Disorders: No Hx Congestive Heart Failure: No Hx Pacemaker: No Hx Hypertension: Yes Hx Thyroid Disease: No Hx Diabetes: No Hx Gastroesophageal Reflux: No Hx Renal Disease: No Hx Cancer: Yes - Skin CA Hx of HIV: No Hx Hepatitis C: No Hx MRSA: No MRSA Source:: Wound Surgical History: cancer surgery, cholecystectomy, Hysterectomy - Vaccination History Hx Tetanus, Diphtheria Vaccination: Yes Hx Influenza Vaccination: Yes Hx Pneumococcal Vaccination: Yes - Social History Hx Tobacco Use: Yes Hx Chewing Tobacco Use: No Hx Alcohol Use: No Hx Substance Use: No Hx Substance Use Treatment: No Hx Depression: No Hx Physical Abuse: No Hx Emotional Abuse: No Hx Suspected Abuse: No - Female History Patient : No - hysterectomy Family Medical History - Family History Mother Living Status: Cause of : emphasema Hx Family Asthma: No Hx Family Congestive Heart Failure: No Hx Family Hypertension: Yes - relatives Hx Family Stroke: No Hx Cardiac Disease: Yes Hx Family Diabetes: Yes - aunt,grandfather Hx Family Cancer: No Physical Exam - Physical Exam General Appearance: Alert, No apparent distress Eye Exam: bilateral normal Ears, Nose, Throat: hearing grossly normal, other - Very poor dentition. See history of present illness. Neck: other - Mild left-sided lymphadenopathy. Respiratory: no respiratory distress, no accessory muscle use Cardiovascular/Chest: normal peripheral pulses, no edema, other - Regular rate Peripheral Pulses: radial,right: 2+, radial,left: 2+ Gastrointestinal/Abdominal: soft, other - Mild discomfort to palpation at the ventral hernia repair site. No definite palpable mass. No signs of any obstruction or incarcerated bowel. Rectal Exam: deferred Extremity: non-tender, no pedal edema, no calf tenderness, normal capillary refill Neurologic: paper rewinder II-XII nml as tested, alert, oriented x 3, depressed affect, other - Affect is fairly flat. Skin Exam: normal color Comments: Vital Signs - 24 hr 08/07/19 06:39 Temperature 96.9 F L Pulse Rate [ 67 left] Respiratory 18 Rate Blood Pressure 136/84 [left] O2 Sat by Pulse 100 Oximetry Progress - Progress Progress: 08/07/19 06:55 The patient is a 44-year-old female presented emergency room secondary to dental pain from infected dental caries. The patient is going to be placed on clindamycin. She can take 2 Aleve with food twice a day for the next for 5 days. She will also be written for a small number of Tylenol 3 to help with pain control as needed. The patient does have some depression symptoms. She does need to follow-up with her primary care doctor for further evaluation and treatment along this line. ER warnings are given for any obvious worsening. simona [email or web address] [id number] Departure - Departure Clinical Impression: Infected dental caries Disposition: Discharge to Home or Self Care Condition: Fair Departure Forms: ED Discharge - Pt. Copy, Patient Portal Self Enrollment Diet: regular diet Activity: increase activity as tolerated Referrals: JAZMINE VALDIVIA [Primary Care Provider] - 1-2 Weeks Prescriptions: Acetamin W/Cod #3 Tab [Tylenol w/CODEINE #3] 1 ea PO Q8HRS PRN #15 tab PRN Reason: Moderate To Severe Pain Clindamycin HCl 300 mg PO Q8HR #21 cap Home Medications: Ambulatory Orders Citalopram Hydrobromide [Citalopram] 40 mg PO DAILY 09/11/18 Cyclobenzaprine HCl [Flexeril] 10 mg PO TID PRN #15 tab 09/11/18 Diazepam [Valium] 10 mg PO PRN 09/11/18 Lisinopril 10 mg PO DAILY 09/11/18 Acetamin W/Cod #3 Tab [Tylenol w/CODEINE #3] 1 ea PO Q8HRS PRN #15 tab 08/07/19 Clindamycin HCl 300 mg PO Q8HR #21 cap 08/07/19 Additional Instructions: The patient is a 44-year-old female presented emergency room secondary to dental pain from infected dental caries. The patient is going to be placed on clindamycin. She can take 2 Aleve with food twice a day for the next for 5 days. She will also be written for a small number of Tylenol 3 to help with pain control as needed. The patient does have some depression symptoms. She does need to follow-up with her primary care doctor for further evaluation and treatment along this line. ER warnings are given for any obvious worsening.
== END 2019-08-07 07:06 | disposition home or self-care (01) ==

== ENCOUNTER → 2020-01-21 | Outpatient (CLI) | payer OTHER, SELFPAY ==
--- NOTE | 2020-01-24 11:24 | MAM ---
EXAM DESCRIPTION: 3D Screening BILATERAL : Digital Mammography. CLINICAL HISTORY: 44 years Female ANNUAL SCREENING . No complaints. Mother with breast cancer and ovarian cancer age 48. Remote family history of breast cancer. Menarche age 12. Childbirth age 22. Premenopausal. No HRT. Lifetime risk of developing breast cancer (Tyrer-Cuzick model)(%): 8.8 (one year ago). COMPARISON: Bilateral screening digital breast tomosynthesis November 2018 diagnostic breast tomosynthesis and directed right breast ultrasound same month. TECHNIQUE: Bilateral CC and MLO projection full-field images, digital tomosynthesis mammographic technique. Bilateral digital 2-D full-field MLO images. CAD available for 2-D images. FINDINGS: The breast parenchymal density pattern is: Heterogeneously dense breast tissue, which may obscure small masses. Axillary nodes. Solitary microcalcifications. No skin thickening or nipple retraction No new focal, stellate mass or density, focal asymmetry , and no suspicious microcalcifications bilaterally. Stable mammograms compared to prior study. IMPRESSION: Benign exam. BIRAD CATEGORY: 2 BENIGN FINDINGS. RECOMMENDATIONS: FOLLOW UP: Routine digital bilateral mammographic screening, one year interval from January 2020. Written communication explaining the IMPRESSION and follow-up, will be mailed to the patient and referring health care provider. According to the [employer], yearly mammograms are recommended starting at age 40 and continuing as long as a woman is in good health. Any breast change noted on a breast self-exam should be reported promptly to the patient's healthcare provider. Breast MRI is recommended for women with an approximately 20-25% or greater lifetime risk of breast cancer, including women with a strong family history of breast or ovarian cancer and women who have been treated for Hodgkin's disease. A negative mammographic report should not delay tissue diagnosis in patients with significant clinical history or physical findings. Extremely dense breast tissue limits the sensitivity of digital mammography. Electronically signed by: Andrew Lewis MD 01/24/2020 11:22 AM [employer] RECOV[employer] COORDINATOR
== END ==
LOC: MAMMO 15:17
PROVIDERS: ATTEND Emergency Medicine
DX: Z12.31 Encounter for screening mammogram for malignant neoplasm of breast (principal)